=== PATIENT | female | born 1955 | race African-American/Black ===

== ENCOUNTER → 2024-02-29 | Day surgery (SDC) | payer MEDICARE, OTHER ==
[~2024-02-29] VITALS: Ht 157.5 cm; Wt 76.7 kg
[~2024-02-29] MED LIST: AMLO10TA80 PO; ATOR40TA70 PO; BALANCED SALT IRRIG SOLN 15ML ONE; BALANCED SALT IRRIG SOLN COMB1 500ML OP NR; CYCLOPENTOLATE HCL 1% OPHTH DROPS 2ML RIGHTEYE SCH; HYALURONATE SODIUM 10MG/ML 0.55ML SYRINGE IO ONE; LOSA100T33 PO; MIDAZOLAM HCL 2 MG/2 ML VIAL ONE; PHENYLEPHRINE HCL 10% OPHTH DROPS 5ML RIGHTEYE SCH; PROP1DRO4 EACHEYE; TRIA1TAB92 PO; TROPICAMIDE 1% OPHTH DROPS 15ML RIGHTEYE SCH
[2024-02-29] MEDS: SODIUM CHLORIDE 0.9% 1,000 ML IV SCH (09:40)
== END | disposition home or self-care (01) ==
LOC: OR 08:35
PROVIDERS: ATTEND Ophthalmology
DX: H25.011 Cortical age-related cataract, right eye (principal); I10 Essential (primary) hypertension; J45.20 Mild intermittent asthma, uncomplicated; E79.0 Hyperuricemia without signs of inflammatory arthritis and tophaceous disease; E78.2 Mixed hyperlipidemia; Z79.899 Other long term (current) drug therapy; Z98.890 Other specified postprocedural states
CPT/HCPCS: 66984; 82962; J3490 ×2; J2250; V2632